=== PATIENT | male | born 1995 | race African-American/Black ===

== ENCOUNTER 2017-09-14 14:39 | Inpatient (IN) | payer OTHER ==
[~2017-09-14] VITALS: Ht 180.3 cm; Wt 68.9 kg
[2017-09-14] VITALS (11 sets, daily range): BP systolic 101–132; BP diastolic 57–89
[~2017-09-14 14:39] MED LIST: CIPROFLOXACIN500 M1 PO; FLAGYL500 MG PO; HYDROXYZINE HCL25 M2 PO; LOCOID 0.1% CRE15 GM TP; NOHOMEMEDICATIONS; VICODIN 5-5001 EACH PO; ZOFRAN ODT4 MG SUBLING
[2017-09-14 15:03] LABS: URINE BILIRUBIN NEGATIVE (Negative); URINE BLOOD NEGATIVE (Negative); URINE CLARITY CLEAR; URINE COLOR YELLOW; URINE GLUCOSE-RANDOM NEGATIVE (Negative); URINE KETONES NEGATIVE (Negative); URINE LEUKOCYTES-REFLEX NEGATIVE (Negative); URINE NITRITE-REFLEX NEGATIVE (Negative); URINE PROTEIN NEGATIVE (Negative); URINE SPECIFIC GRAVITY >= 1.030 (1.005-1.030); URINE UROBILINOGEN 0.2 E.U./dl (0.2-1.0)
[2017-09-14 15:05] LABS: ABSOLUTE BASOPHILS 0.1 thou/uL (0.0-0.2); ABSOLUTE LYMPHOCYTES 2.7 thou/uL (0.8-5.3); ABSOLUTE MONOCYTES 0.7 thou/uL (0.0-1.2); ABSOLUTE NEUTROPHILS 3.8 thou/uL (1.6-8.1); BASOPHILS 0.7 %; EOSINOPHILS 0.4 %; HEMATOCRIT 46.3 % (42.0-52.0); HEMOGLOBIN 15.5 gm/dL (14.0-18.0); LYMPHOCYTES 37.6 %; MCH 32.1 pg (26.0-34.0); MCHC 33.5 g/dL (28.0-37.0); MCV 95.8 fL (80.0-100.0); MONOCYTES 9.1 %; MPV 7.8 fl. (7.2-11.1); NUCLEATED RBCS 0 /100WBC; PLATELET COUNT* 314 thou/uL (150-400); POLYS 52.2 %; RBC 4.84 mil/uL (4.50-6.00); RDW-CV 14.1 % (10.5-14.5); WBC 7.3 thou/uL (4.0-11.0)
[2017-09-14 15:12] LABS: AMP/METHAMP POSITIVE (Negative); BARBITURATES Negative (Negative); BENZODIAZEPINES Negative (Negative); COCAINE Negative (Negative); METHADONE Negative (Negative); OPIATES POSITIVE (Negative); PCP POSITIVE (Negative); THC Negative (Negative)
[2017-09-14 15:17] LABS: ANION GAP 12 mmol/L (7-16); BUN 12 mg/dL (7-18); CALCIUM 8.8 mg/dL (8.5-10.1); CHLORIDE 102 mmol/L (98-107); CO2 24 mmol/L (21-32); CREATININE 0.9 mg/dL (0.6-1.3); GLUCOSE 76 mg/dL (70-99); POTASSIUM 3.5 mmol/L (3.5-5.1); SODIUM 138 mmol/L (136-145)
[2017-09-14 15:21] LABS: ALCOHOL 158 mg/dL (<10); SALICYLATE < 2.8 mg/dL (2.8-20.0)
[2017-09-14 15:22] LABS: ACETAMINOPHEN < 2 ug/mL (10-30)
[2017-09-14 15:24] LABS: ALKALINE PHOSPHATASE 68 U/L (46-116); SGOT 19 U/L (15-37); SGPT 23 U/L (30-65); TOTAL BILIRUBIN 0.5 mg/dL (<0.1-1.0); TOTAL PROTEIN 8.2 g/dL (6.4-8.2); TROPONIN-I LEVEL <0.06 ng/mL (<0.06)
--- NOTE | 2017-09-14 18:00 | NUR ---
PATIENT ARRIVED TO THE ICU FROM ER AT 1648. VERY DROWSY, ABLE TO ANSWER SOME QUESTIONS, BUT POOR HISTORIAN GIVEN CONDITION. VITALS STABLE ON MONITOR. TRACING NSR ON MARINE RIGGER. DOES NOT APPEAR TO BE IN PAIN. ATTEMPTED SECOND IV X2 WITH NO SUCCESS. NS INFUSING IN LFA 18G PER ORDERS. TESTED POSITIVE FOR OPIATES, METHAMPHETAMINES, PCP, AND ETOH. DID STATE "I DRINK UNTIL THE BOTTLE IS GONE" AND WHEN CLARIFIED PATIENT STATED "A FIFTH". PHYSICIAN NOTIFIED.
--- NOTE | 2017-09-14 22:09 | NUR ---
INITAL ASSESSMENT COMPLETED AT 1930. PT RESTING QUIETLY IN BED. PT AROUSES TO VOICE AND RESPONDS APROPRIATELY. SINUS RHYTHM ON MONITOR, O2 SAT 98 % ON ROOM AIR. PT DENIES OAIN OR DISCOFORT. PT GIVEN ICE CREAM PER HIS REQUEST. PT USING CALL LIGHT APROPRIATELY. WILL CONTINUE TO MONITOR.
[2017-09-15] VITALS (11 sets, daily range): BP systolic 98–119; BP diastolic 62–78
--- NOTE | 2017-09-15 13:29 | NUR ---
PATIENT DC HOME ALERT AND ORIENTED. STEADY GAIT. LEFT PER CAB.
--- NOTE | 2017-09-15 13:36 | EKG ---
[place] [address] ELECTROCARDIOGRAM REPORT Name: TIA MORE Room: [address] IN [facility].#: [id number] Admission: 09/14/17 Attend Phys: [place] Friend Discharge: Date of : [birth year] Report #: [id number] THIS REPORT FOR: //name// [facility] ED Test Date: 2017-09-14 Test Time: 14:49:51 Pat Name: TIA MORE Department: Room: Gender: Stripper Latex: : 1995 Requested By: Steve James Order Number: [id number] MD: Reji Whittington Measurements Intervals [place] Rate: 110 P: 78 MS: 143 QRS: 63 QRSD: 79 T: 52 QT: 330 QTc: 447 Interpretive Statements Sinus tachycardia Probable left atrial enlargement Baseline wander in lead(s) V3 No previous ECG available for comparison Electronically Signed On 09-15-2017 13:36:08 CDT by Reji Whittington [email or web address] <ELECTRONICALLY SIGNED> By: Reji Whittington MD, [facility] 09/15/17 1336 [id number] [id number] Reji Whittington MD, FACC /EPI
== END 2017-09-15 13:20 | disposition home or self-care (01) | DRG 918 ==
LOC: M.ERS 14:39 → M.TBA-ER 16:00 → M.ICU 16:00
PROVIDERS: Emergency Medicine; ADMIT Internal Medicine
DX: T48.3X1A Poisoning by antitussives, accidental (unintentional), initial encounter (principal); R41.82 Altered mental status, unspecified; F10.920 Alcohol use, unspecified with intoxication, uncomplicated; Y92.89 Other specified places as the place of occurrence of the external cause; F19.90 Other psychoactive substance use, unspecified, uncomplicated; Z87.891 Personal history of nicotine dependence

== ENCOUNTER 2017-09-22 23:23 | Emergency (ER) | payer OTHER ==
[~2017-09-22] VITALS: Ht 180.3 cm; Wt 65.8 kg
[2017-09-22 23:53] LABS: ABSOLUTE LYMPHOCYTES 2.8 thou/uL (0.8-5.3); ABSOLUTE MONOCYTES 0.4 thou/uL (0.0-1.2); BASOPHILS 0.6 %; EOSINOPHILS 0.6 %; HEMATOCRIT 43.7 % (42.0-52.0); HEMOGLOBIN 14.7 gm/dL (14.0-18.0); LYMPHOCYTES 38.4 %; MCH 32.4 pg (26.0-34.0); MCHC 33.6 g/dL (28.0-37.0); MCV 96.5 fL (80.0-100.0); MONOCYTES 6.2 %; MPV 8.1 fl. (7.2-11.1); NUCLEATED RBCS 0 /100WBC; PLATELET COUNT* 254 thou/uL (150-400); POLYS 54.2 %; RBC 4.53 mil/uL (4.50-6.00); WBC 7.3 thou/uL (4.0-11.0)
[2017-09-23] LABS: CREATININE 1.2 mg/dL (0.6-1.3); POTASSIUM 3.6 mmol/L (3.5-5.1)
[2017-09-23 00:04] LABS: ALBUMIN 3.5 g/dL (3.4-5.0); TOTAL BILIRUBIN 0.2 mg/dL (<0.1-1.0); TOTAL PROTEIN 7.4 g/dL (6.4-8.2)
[2017-09-23 00:07] LABS: ALCOHOL 78 mg/dL (<10); SALICYLATE < 2.8 mg/dL (2.8-20.0)
[2017-09-23 00:08] LABS: ACETAMINOPHEN < 2 ug/mL (10-30)
[2017-09-23 00:30] LABS: URINE BILIRUBIN NEGATIVE (Negative); URINE BLOOD NEGATIVE (Negative); URINE CLARITY CLEAR; URINE COLOR YELLOW; URINE GLUCOSE-RANDOM NEGATIVE (Negative); URINE KETONES TRACE (Negative); URINE LEUKOCYTES-REFLEX NEGATIVE (Negative); URINE NITRITE-REFLEX NEGATIVE (Negative); URINE PROTEIN NEGATIVE (Negative); URINE SPECIFIC GRAVITY >= 1.030 (1.005-1.030); URINE UROBILINOGEN 0.2 E.U./dl (0.2-1.0)
[2017-09-23 00:39] LABS: AMP/METHAMP POSITIVE (Negative); BARBITURATES Negative (Negative); BENZODIAZEPINES Negative (Negative); COCAINE Negative (Negative); METHADONE Negative (Negative); OPIATES Negative (Negative); PCP Negative (Negative); THC Negative (Negative)
[2017-09-23 15:15] VITALS: BP 130/76
== END 2017-09-23 15:15 | disposition home or self-care (01) ==
LOC: M.ERS 23:23
PROVIDERS: Emergency Medicine
DX: R45.851 Suicidal ideations (principal); F15.10 Other stimulant abuse, uncomplicated; F32.9 Major depressive disorder, single episode, unspecified; Z87.891 Personal history of nicotine dependence

== ENCOUNTER 2017-11-21 16:41 | Emergency (ER) | payer OTHER ==
[~2017-11-21] VITALS: Ht 180.3 cm; Wt 72.6 kg
[2017-11-21 16:53] VITALS: BP 140/94
[2017-11-21] MEDS ORDERED: QUETIAPINE FUM100 MG PO (16:58)
[2017-11-21] MEDS ORDERED: RISPERDAL0.25 MG PO (16:58)
--- NOTE | 2017-11-21 16:59 | NUR ---
PT BELONGINGS TAKEN AND INVENTORIED VIA SECURITY.
--- NOTE | 2017-11-21 16:59 | NUR ---
PT IS BEING IN APPROPRIATE EXPOSING HIMSELF. DR. MCKAY AND SECURITY NOTIED AND SPOKE WITH PT ABOUT HIS BEHAVIOR.
--- NOTE | 2017-11-21 17:00 | NUR ---
POISON CONTROL CONTACTED BY DR. SWAIN
[2017-11-21 17:17] LABS: ABSOLUTE BASOPHILS 0.1 thou/uL (0.0-0.2); ABSOLUTE LYMPHOCYTES 3.3 thou/uL (0.8-5.3); ABSOLUTE MONOCYTES 0.9 thou/uL (0.0-1.2); ABSOLUTE NEUTROPHILS 4.9 thou/uL (1.6-8.1); BASOPHILS 0.8 %; EOSINOPHILS 0.4 %; HEMATOCRIT 45.5 % (42.0-52.0); HEMOGLOBIN 15.2 gm/dL (14.0-18.0); LYMPHOCYTES 35.6 %; MCH 32.1 pg (26.0-34.0); MCHC 33.3 g/dL (28.0-37.0); MCV 96.2 fL (80.0-100.0); MONOCYTES 9.7 %; MPV 7.9 fl. (7.2-11.1); NUCLEATED RBCS 0 /100WBC; PLATELET COUNT* 317 thou/uL (150-400); POLYS 53.5 %; RBC 4.72 mil/uL (4.50-6.00); RDW-CV 14.2 % (10.5-14.5); WBC 9.2 thou/uL (4.0-11.0)
[2017-11-21 17:32] LABS: CALCIUM 8.7 mg/dL (8.5-10.1); CREATININE 0.9 mg/dL (0.6-1.3); POTASSIUM 3.2 mmol/L (3.5-5.1)
[2017-11-21 17:36] LABS: ALBUMIN 3.8 g/dL (3.4-5.0); ALCOHOL 179 mg/dL (<10); SALICYLATE < 2.8 mg/dL (2.8-20.0); TOTAL BILIRUBIN 0.4 mg/dL (<0.1-1.0); TOTAL PROTEIN 7.9 g/dL (6.4-8.2)
[2017-11-21 17:37] LABS: ACETAMINOPHEN < 2 ug/mL (10-30)
--- NOTE | 2017-11-21 17:52 | NUR ---
PT REQUESTING FOOD TRAY, DISCUSSED WITH DR MCKAY. NO FOOD OR DRINK TO BE GIVEN RIGHT NOW D/T ASPIRATION RISK R/T INGESTION OF CORICIDIN AND ETOH. PT INFORMED OF THIS.
[2017-11-21 22:06] LABS: SALICYLATE < 2.8 mg/dL (2.8-20.0)
[2017-11-21 22:08] LABS: ACETAMINOPHEN < 2 ug/mL (10-30)
[2017-11-21 22:33] LABS: URINE BILIRUBIN NEGATIVE (Negative); URINE BLOOD NEGATIVE (Negative); URINE CLARITY CLEAR; URINE COLOR YELLOW; URINE GLUCOSE-RANDOM NEGATIVE (Negative); URINE LEUKOCYTES-REFLEX NEGATIVE (Negative); URINE NITRITE-REFLEX NEGATIVE (Negative); URINE PROTEIN NEGATIVE (Negative); URINE SPECIFIC GRAVITY 1.025 (1.005-1.030); URINE UROBILINOGEN 0.2 E.U./dl (0.2-1.0)
[2017-11-21 22:41] LABS: AMP/METHAMP POSITIVE (Negative); BARBITURATES Negative (Negative); BENZODIAZEPINES Negative (Negative); COCAINE Negative (Negative); METHADONE Negative (Negative); OPIATES POSITIVE (Negative); PCP POSITIVE (Negative); THC Negative (Negative)
[2017-11-21 22:43] LABS: URINE KETONES 3+ (Negative)
--- NOTE | 2017-11-22 00:40 | NUR ---
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
[2017-11-22 01:23] VITALS: BP 126/73
--- NOTE | 2017-11-22 16:13 | EKG ---
[place] [address] ELECTROCARDIOGRAM REPORT Name: TIA MORE Room: [facility]#: [id number] Admission: 11/21/17 Attend Phys: Discharge: 11/22/17 Date of : [birth year] Report #: [id number] THIS REPORT FOR: //name// [facility] ED Test Date: 2017-11-21 Test Time: 19:08:02 Pat Name: TIAZOILA MORE Department: Room: [place] [address] Gender: M [employer]er: MATT : 1995 Requested By: Hank Levine Order Number: [id number] MD: Gunner Schilling Measurements Intervals [place] Rate: 111 P: 71 [place]: 167 QRS: 72 QRSD: 79 T: 72 QT: 342 QTc: 465 Interpretive Statements Sinus tachycardia Compared to ECG 09/14/2017 14:49:51 No significant changes Electronically Signed On 11-22-2017 16:13:04 CDT by Gunner Schilling [email or web address] <ELECTRONICALLY SIGNED> By: Gunner Schilling MD, [facility] 11/22/17 1613 [id number] Gunner Schilling MD, FACC /EPI
== END 2017-11-22 01:10 | disposition home or self-care (01) ==
LOC: M.ERS 16:41 → M.TBA-ER 18:18 → M.ERS 18:18
PROVIDERS: Emergency Medicine Emergency Medical Services; Personal Emergency Response Attendant
DX: T39.1X2A Poisoning by 4-Aminophenol derivatives, intentional self-harm, initial encounter (principal); Y92.89 Other specified places as the place of occurrence of the external cause; F10.129 Alcohol abuse with intoxication, unspecified; R45.851 Suicidal ideations; F32.9 Major depressive disorder, single episode, unspecified; Y90.0 Blood alcohol level of less than 20 mg/100 ml; Z87.891 Personal history of nicotine dependence

== ENCOUNTER 2018-04-21 08:53 | Emergency (ER) | payer OTHER ==
[~2018-04-21] VITALS: Ht 177.8 cm; Wt 83.9 kg
[~2018-04-21 08:53] MED LIST changes: +QUETIAPINE FUM100 MG PO; +RISPERDAL0.25 MG PO
[2018-04-21 09:16] LABS: ABSOLUTE BASOPHILS 0.1 thou/uL (0.0-0.2); ABSOLUTE LYMPHOCYTES 3.1 thou/uL (0.8-5.3); ABSOLUTE MONOCYTES 0.8 thou/uL (0.0-1.2); ABSOLUTE NEUTROPHILS 3.4 thou/uL (1.6-8.1); BASOPHILS 1.2 %; EOSINOPHILS 0.4 %; HEMATOCRIT 43.5 % (42.0-52.0); HEMOGLOBIN 14.8 gm/dL (14.0-18.0); LYMPHOCYTES 41.5 %; MCH 31.8 pg (26.0-34.0); MCHC 33.9 g/dL (28.0-37.0); MONOCYTES 11.1 %; MPV 7.8 fl. (7.2-11.1); NUCLEATED RBCS 0 /100WBC; PLATELET COUNT* 275 thou/uL (150-400); POLYS 45.8 %; RBC 4.63 mil/uL (4.50-6.00); RDW-CV 14.1 % (10.5-14.5); WBC 7.4 thou/uL (4.0-11.0)
[2018-04-21 09:24] LABS: URINE BILIRUBIN NEGATIVE (Negative); URINE BLOOD NEGATIVE (Negative); URINE CLARITY CLEAR; URINE COLOR YELLOW; URINE GLUCOSE-RANDOM NEGATIVE (Negative); URINE KETONES NEGATIVE (Negative); URINE LEUKOCYTES-REFLEX NEGATIVE (Negative); URINE NITRITE-REFLEX NEGATIVE (Negative); URINE PROTEIN NEGATIVE (Negative); URINE SPECIFIC GRAVITY 1.015 (1.005-1.030)
[2018-04-21 09:34] LABS: ALBUMIN 3.7 g/dL (3.4-5.0); CALCIUM 8.8 mg/dL (8.5-10.1); CREATININE 0.9 mg/dL (0.6-1.3); POTASSIUM 3.7 mmol/L (3.5-5.1); TOTAL BILIRUBIN 0.5 mg/dL (<0.1-1.0); TOTAL PROTEIN 7.7 g/dL (6.4-8.2)
[2018-04-21 09:37] LABS: AMP/METHAMP POSITIVE (Negative); BARBITURATES Negative (Negative); BENZODIAZEPINES Negative (Negative); COCAINE Negative (Negative); METHADONE Negative (Negative); OPIATES Negative (Negative); PCP Negative (Negative); THC POSITIVE (Negative)
[2018-04-21 09:40] LABS: ALCOHOL 126 mg/dL (<10); SALICYLATE < 2.8 mg/dL (2.8-20.0)
[2018-04-21 09:41] LABS: ACETAMINOPHEN < 2 ug/mL (10-30)
[2018-04-22 17:06] VITALS: BP 110/77
== END 2018-04-22 17:06 | disposition still patient (30) ==
LOC: M.ERS 08:53
PROVIDERS: Emergency Medicine Emergency Medical Services
DX: R45.851 Suicidal ideations (principal); F32.9 Major depressive disorder, single episode, unspecified; Z87.891 Personal history of nicotine dependence